=== PATIENT | female | born 1990 | race Caucasian/White ===

== ENCOUNTER 2021-06-08 21:38 | Emergency (ER) | payer MEDICAID ==
[~2021-06-08] VITALS: Ht 165.1 cm; Wt 64.0 kg
[2021-06-08 21:41] VITALS: BP 110/60
[2021-06-09] MEDS ORDERED: ACETAMINOPHEN 325MG TABLET PO ONE (02:15)
== END 2021-06-09 03:34 | disposition home or self-care (01) ==
LOC: ER 21:38
DX: R00.2 Palpitations (principal); M54.2 Cervicalgia
CPT/HCPCS: 93005; 99283